=== PATIENT | female | born 1955 | race Caucasian/White ===

== ENCOUNTER 2017-09-15 18:56 | Emergency (ER) | payer OTHER ==
[~2017-09-15] VITALS: Ht 154.9 cm; Wt 59.0 kg
[2017-09-15 19:05] VITALS: BP 189/119; PULSE 113; RESP 18; TEMP 98.2; O2SAT 96
--- NOTE | 2017-09-15 19:36 | PD ---
HPI Chief Complaint: Hypertension Time Seen by Provider: 19:16 Travel History International Travel<30 days: No Contact w/Intl Traveler<30days: No History of Present Illness HPI 61yo F with no significant PMH here with multiple complaints. Pt has been having lower back pain for 1 week and went to her PMD's office this morning. She was given steroid and toradol and referred to the chiropractor. Pt went to her chiropractor after and had some manipulations and said pain has improved. Patient said there is no back pain until she moves. Denies any fever, fall, focal weakness or numbness. However, she started developing a bilateral temporal headache around 3pm and her blood pressure was very elevated. Said she does not have a history of elevated blood pressure. Denies any visual changes, chest pain, sob, n/v, abdominal pain. Pt does take xanax for sleep and appears anxious. PFSH Social History Tobacco Use: No Allergies-Medications (Allergen,Severity, Reaction): Coded Allergies: No Known Allergies (Unverified , 09/15/17) Review of Systems Except as stated in HPI: all other systems reviewed are Neg Physical Exam Narrative GENERAL: 61yo F in mild distress. SKIN: Focused skin assessment warm/dry. HEAD: Atraumatic. Normocephalic. EYES: Pupils equal and round. No scleral icterus. No injection or drainage. ENT: No nasal bleeding or discharge. Mucous membranes pink and moist. NECK: Trachea midline. No JVD. CARDIOVASCULAR: Regular rate and rhythm. No murmur appreciated. RESPIRATORY: No accessory muscle use. Clear to auscultation. Breath sounds equal bilaterally. GASTROINTESTINAL: Abdomen soft, non-tender, nondistended. BACK: No midline thoracic or lumbar ttp. +TTP left lumbar paraspinal muscle. MUSCULOSKELETAL: No obvious deformities. No clubbing. No cyanosis. No edema. NEUROLOGICAL: Awake and alert. No obvious cranial nerve deficits. Motor grossly within normal limits in all extremities. Sensation equal. Normal speech. PSYCHIATRIC: Appropriate mood and affect; insight and judgment normal. Data Data Last Documented VS Vital Signs Date Time Temp Pulse Resp B/P (MAP) Pulse Ox O2 Delivery O2 Flow Rate FiO2 09/15/17 22:49 89 20 139/87 (104) 95 09/15/17 22:31 Room Air 09/15/17 19:[address] Brain W/O Iv Contrast(Rout) (09/15/17 ) Spine, Lumbar - Ltd (Ap & Lat) (09/15/17 ) Complete Blood Count With Diff (09/15/17 19:33) Basic Metabolic Panel (Bmp) (09/15/17 19:33) Electrocardiogram (09/15/17 ) Labetalol Inj (Trandate Inj) (09/15/17 20:15) Clonidine (Catapres) (09/15/17 21:15) Acetaminophen (Tylenol) (09/15/17 21:15) Diazepam (Valium) (09/15/17 21:45) Ed Discharge Order (09/15/17 22:35) Labs Laboratory Tests Test 09/15/17 20:20 White Blood Count 5.9 TH/MM3 Red Blood Count 4.99 MIL/MM3 Hemoglobin 14.9 GM/DL Hematocrit 44.2 % Mean Corpuscular Volume 88.6 FL Mean Corpuscular Hemoglobin 29.8 PG Mean Corpuscular Hemoglobin Concent 33.7 % Red Cell Distribution Width 12.2 % Platelet Count 241 TH/MM3 Mean Platelet Volume 8.6 FL Neutrophils (%) (Auto) 87.9 % Lymphocytes (%) (Auto) 10.5 % Monocytes (%) (Auto) 1.0 % Eosinophils (%) (Auto) 0.1 % Basophils (%) (Auto) 0.5 % Neutrophils # (Auto) 5.2 TH/MM3 Lymphocytes # (Auto) 0.6 TH/MM3 Monocytes # (Auto) 0.1 TH/MM3 Eosinophils # (Auto) 0.0 TH/MM3 Basophils # (Auto) 0.0 TH/MM3 CBC Comment DIFF FINAL Differential Comment Blood Urea Nitrogen 10 MG/DL Creatinine 0.74 MG/DL Random Glucose 128 MG/DL Calcium Level 9.3 MG/DL Sodium Level 139 MEQ/L Potassium Level 3.6 MEQ/L Chloride Level 108 MEQ/L Carbon Dioxide Level 21.0 MEQ/L Anion Gap 10 MEQ/L Estimat Glomerular Filtration Rate 79 ML/MIN [facility] Medical Decision Making Medical Screen Exam Complete: Yes Emergency Medical Condition: Yes Interpretation(s) EKG: Sinus tachycardia at 106bpm. Differential Diagnosis Hypertensive emergency vs. ICH vs. musculoskeletal pain vs. sciatica vs. anxiety Narrative Course 61yo F here with headache and elevated blood pressure that started around 3pm today. BP was markedly elevated at 189/119. Pt given labetatlol which decreased BP to 166/106. Since onset of headache has been less than 6 hours and BP is very high, CT brain obtained to r/o hypertensive bleed. CT brain negative for acute abnormality. Pt's back pain seemed very musculoskeletal but pt is insistent on xray. Xray lumbar spine showed minimal degenerative change. Labs reviewed, no leukocytosis. Creatinine normal. Pt reevaluated at bedside and changes her mind on what she wants. Said headache has improved and that she came for back pain. I ordered valium but then she refused it and said she does not have any back pain when lying down and does not want it. BP has improved to 139/87. Will have pt follow up with primary care physician. Pt does not have history of HTN and does not like medications so will have pt follow up with PMD before starting on any medication. Return precautions given. Diagnosis Primary Impression: Elevated blood pressure reading Additional Impression: Back pain Qualified Codes: M54.5 - Low back pain Patient Instructions: General Instructions Departure Forms: Tests/Procedures Additional Instructions: Please follow up with your primary care physician regarding your elevated blood pressure today. Return to the ED if symptoms worsen. Med/Other Pt SpecificInfo: No Change to Meds Disposition: 01 DISCHARGE HOME Condition: Stable Michelle Medina DO Sep 15, 2017 19:36
[2017-09-15] MEDS ORDERED: LABETALOL HCL 100 MG/20 ML VIAL IV PUSH ONE (20:15)
--- NOTE | 2017-09-15 20:21 | RADRPT ---
EXAM DATE/TIME: 09/15/2017 19:44 [facility] COMPARISON: No previous studies available for comparison. INDICATIONS : Cephalgia. Hypertension. RADIATION DOSE: 47.73 CTDIvol (mGy) MEDICAL HISTORY : Hypertension. SURGICAL HISTORY : None. ENCOUNTER: Initial ACUITY: 2 weeks PAIN SCALE: 5/10 LOCATION: cranial TECHNIQUE: Multiple contiguous axial images were obtained of the head. Using automated exposure control and adj ustment of the mA and/or kV according to patient size, radiation dose was kept as low as reasonably a chievable to obtain optimal diagnostic quality images. DICOM format image data is available electro nically for review and comparison. FINDINGS: CEREBRUM: The ventricles are mildly dilated. There is some expansion of the extra axial spaces over the frontal lobes. No evidence of midline shift, mass lesion, hemorrhage or acute infarction. No extra-axial f luid collections are seen. POSTERIOR FOSSA: The cerebellum and brainstem are intact. The 4th ventricle is midline. The cerebellopontine angle i s unremarkable. EXTRACRANIAL: The visualized portion of the orbits is intact. SKULL: The calvaria is intact. No evidence of skull fracture. CONCLUSION: 1. No acute abnormality seen. 2. Mild atrophy. Eulalio Chow MD on September 15, 2017 at 20:16 Board Certified Radiologist. This report was verified electronically.
[2017-09-15 20:22] VITALS: BP 182/116; PULSE 102; O2SAT 97
--- NOTE | 2017-09-15 20:38 | RADRPT ---
EXAM DATE/TIME: 09/15/2017 19:54 [facility] COMPARISON: No previous studies available for comparison. INDICATIONS : Lower back pain for 1 week, no known trauma. MEDICAL HISTORY : None. SURGICAL HISTORY : None. ENCOUNTER: Initial ACUITY: 1 week PAIN SCORE: 4/10 LOCATION: lumbar spine. FINDINGS: The lumbar vertebral bodies are normally aligned. They are normal in height. There is minimal disc sp tony narrowing at the L3-L4 level. Minimal marginal osteophytes are seen. There is facet hypertrophy a t the L5-S1 level. The sacroiliac joints are intact. CONCLUSION: Minimal degenerative change. Eulalio Chow MD on September 15, 2017 at 20:30 Board Certified Radiologist. This report was verified electronically.
[2017-09-15 20:39] VITALS: BP 153/102; PULSE 90; O2SAT 95
[2017-09-15 20:46] LABS: AUTOMATED NEUTROPHIL # 5.2 TH/MM3 (1.8-7.7); BASOPHIL % 0.5 % (0.0-2.0); EOSINOPHIL % 0.1 % (0.0-4.0); HEMATOCRIT 44.2 % (35.0-46.0); HEMOGLOBIN 14.9 GM/DL (11.6-15.3); LYMPH % 10.5 % (9.0-44.0); LYMPHOCYTE # 0.6 TH/MM3 (1.0-4.8); MEAN CELL VOLUME 88.6 FL (80.0-100.0); MEAN CORPUSCULAR HEMOGLOBIN 29.8 PG (27.0-34.0); MEAN CORPUSCULAR HGB CONC 33.7 % (32.0-36.0); MEAN PLATELET VOLUME 8.6 FL (7.0-11.0); MONOCYTE # 0.1 TH/MM3 (0-0.9); NEUT % 87.9 % (16.0-70.0); PLATELET COUNT 241 TH/MM3 (150-450); RED BLOOD COUNT 4.99 MIL/MM3 (4.00-5.30); RED CELL DISTRIBUTION WIDTH 12.2 % (11.6-17.2); WHITE BLOOD COUNT 5.9 TH/MM3 (4.0-11.0)
[2017-09-15 20:51] VITALS: BP 166/106; PULSE 84; O2SAT 96
[2017-09-15 21:01] LABS: CALCIUM 9.3 MG/DL (8.5-10.1)
[2017-09-15 21:05] LABS: CREATININE 0.74 MG/DL (0.50-1.00)
[2017-09-15] MEDS ORDERED: cloNIDine HCL 0.1 MG TAB PO ONE (21:15)
[2017-09-15] MEDS ORDERED: ACETAMINOPHEN 325 MG TAB PO ONE (21:15)
[2017-09-15] MEDS ORDERED: DIAZEPAM 2 MG TAB PO ONE (21:45)
[2017-09-15 22:31] VITALS: BP 139/87; PULSE 89; RESP 20; O2SAT 95
[2017-09-15 22:49] VITALS: BP 139/87
--- NOTE | 2017-09-16 15:39 | EKG ---
Date Performed: 09/15/2017 Time Performed: 19:42:37 PTAGE: 61 years EKG: SINUS TACHYCARDIA POSSIBLE LEFT ATRIAL ENLARGEMENT Nonspecific ST-T wave changes ABNORMAL R HYTHM ECG NO PREVIOUS TRACING DOCTOR: Danny Stiles Interpretating Date/Time 09/16/2017 15:29:25
== END 2017-09-15 22:51 | disposition home or self-care (01) ==
LOC: PHED 18:56
DX: R03.0 Elevated blood-pressure reading, without diagnosis of hypertension (principal); M54.5 Low back pain; R51 Headache; R94.31 Abnormal electrocardiogram [ECG] [EKG]
CPT/HCPCS: 70450; 72100; 80048; 85025; 93005; 96374